=== PATIENT | female | born 1965 ===

== ENCOUNTER 2019-04-08 18:04 | Emergency (ER) | payer OTHER ==
[~2019-04-08] VITALS: Ht 162.6 cm; Wt 78.9 kg
== END 2019-04-08 20:09 | disposition home or self-care (01) ==
LOC: ER 18:04
DX: M75.51 Bursitis of right shoulder (principal)

== ENCOUNTER 2019-04-10 15:54 | Emergency (ER) | payer OTHER ==
[~2019-04-10] VITALS: Ht 162.6 cm; Wt 78.9 kg
[2019-04-10] MEDS ORDERED: ANAPROX (16:39)
== END 2019-04-10 18:47 | disposition home or self-care (01) ==
LOC: ER 15:54
DX: M25.511 Pain in right shoulder (principal)